=== PATIENT | male | born 1970 | race American Indian/Alaskan Native ===

== ENCOUNTER 2018-10-12 07:36 | Emergency (ER) | payer SELFPAY ==
--- NOTE | 2018-10-12 08:30 | XRay Report ---
ROUTINE CHEST, TWO VIEWS: HISTORY: chest pain. The trachea, heart, mediastinal contour, lung [place] and bony thorax are unremarkable. IMPRESSION: Unremarkable chest x-ray.
--- NOTE | 2018-10-12 08:40 | Emergency Department Report ---
ED Chest Pain HPI - General Chief Complaint: Chest Pain Stated Complaint: CHEST PAIN Time Seen by Provider: 10/12/18 08:23 Source: patient Mode of arrival: Ambulatory Limitations: No Limitations - History of Present Illness Initial Comments: 48-year-old male with history of hypertension presents to the ED with complaint of chest pain x 2 days. Patient reports pain feels like muscle soreness in the middle of his chest. 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 Pain is worse with deep breath, twisting of torso, stretching. Patient denies shortness of breath, leg pain or swelling, nausea or vomiting, diaphoresis. MD Complaint: chest pain -: days(s) (2) Onset: during rest Pain Location: substernal Pain Radiation: none Severity: moderate Quality: other ("soreness") Consistency: constant Improves With: nothing Worsens With: inspiration, movement re: denies: nausea, vomting, diaphoresis, dyspnea Other Symptoms: denies: cough, fever, leg swelling, palpitations - Related Data Previous Rx's Medication Instructions Recorded Last Taken Type HYDROcodone/APAP 5-325 [[place] 1 each PO Q6HR PRN #15 tablet 05/20/13 Unknown Rx 5/325 mg] Indomethacin [Indocin] 25 mg PO Q8H #30 capsule 05/20/13 Unknown Rx Naproxen [Naprosyn] 500 mg PO BID #20 tablet 10/12/18 Unknown Rx Allergies Allergy/AdvReac Type Severity Reaction Status Date / Time No Known Allergies Allergy Verified 10/12/18 07:38 Heart Score - HEART Score History: Slightly suspicious EKG: Normal Age: 45-65 Risk factors: 1-2 risk factors Troponin: < normal limit HEART Score: 2 - Critical Actions Critical Actions: 0-3 pts:0.9-1.7%risk of adverse cardiac event.Candidate for discharge ED Review of Systems ROS: Stated complaint: CHEST PAIN Other details as noted in HPI Comment: All other systems reviewed and negative Constitutional: denies: chills, fever Respiratory: denies: cough, shortness of breath Cardiovascular: chest pain Gastrointestinal: denies: nausea, vomiting Musculoskeletal: other (denies leg pain or swelling) ED Past Medical Hx - Past Medical History Hx Hypertension: Yes - Social History Smoking Status: Current Every Day Smoker Substance Use Type: None - Medications Home Medications: Home Medications Medication Instructions Recorded Confirmed Last Taken Type HYDROcodone/APAP 5-325 [[place] 1 each PO Q6HR PRN #15 tablet 05/20/13 Unknown Rx 5/325 mg] Indomethacin [Indocin] 25 mg PO Q8H #30 capsule 05/20/13 Unknown Rx Naproxen [Naprosyn] 500 mg PO BID #20 tablet 10/12/18 Unknown Rx ED Physical Exam - General Limitations: No Limitations General appearance: alert, in no apparent distress - Head Head exam: Present: atraumatic, normocephalic - Eye Eye exam: Present: normal appearance, PERRL, EOMI - ENT ENT exam: Present: mucous membranes moist - Neck Neck exam: Present: normal inspection - Respiratory Respiratory exam: Present: normal lung sounds bilaterally, chest wall tenderness. Absent: respiratory distress - Cardiovascular Cardiovascular Exam: Present: regular rate, normal rhythm - GI/Abdominal GI/Abdominal exam: Absent: distended - Extremities Exam Extremities exam: Present: normal inspection. Absent: pedal edema, calf tenderness - Neurological Exam Neurological exam: Present: alert, oriented X3 - Psychiatric Psychiatric exam: Present: normal affect, normal mood - Skin Skin exam: Present: warm, dry, intact, normal color. Absent: rash ED Course Vital Signs 10/12/18 07:54 Temperature 98.4 F Pulse Rate 92 H Respiratory 14 Rate Blood Pressure 143/101 [Left] O2 Sat by Pulse 99 Oximetry ED Medical Decision Making - Lab Data Result diagrams: 10/12/18 08:13 10/12/18 09:33 - EKG Data -: EKG Interpreted by Pa EKG shows normal: sinus rhythm, axis, intervals, QRS complexes, ST-T waves Rate: normal - EKG Data Interpretation: LVH - Radiology Data Radiology results: report reviewed, image reviewed - Medical Decision Making - chest wall pain - EKG normal, trop negative - CXR normal - outpt f/u advised - return precautions given - Differential Diagnosis costochondritis, pneumonia, ACS Critical care attestation.: If time is entered above; I have spent that time in minutes in the direct care of this critically ill patient, excluding procedure time. ED Disposition Clinical Impression: Costochondritis, acute Disposition: DC-01 TO HOME OR SELFCARE Is pt being admited?: No Condition: Stable Instructions: Costochondritis (ED) Referrals: SPENCER ARTIS MD [Primary Care Provider] - 3-5 Days Time of Disposition: 10:20
[2018-10-12 08:52] LABS: Alanine Aminotransferase 29 units/L (7-56); Albumin 4.4 g/dL (3.9-5); BUN/Creatinine Ratio 11; Blood Urea Nitrogen 13 mg/dL (9-20); Calcium 9.7 mg/dL (8.4-10.2); Hemolysis Index 24
[2018-10-12 09:25] LABS: Basophils % (Auto) 0.6 % (0.0-1.8); Eosinophils # (Auto) 0.1 K/mm3 (0.0-0.4); Eosinophils % (Auto) 1.4 % (0.0-4.3); Hematocrit 45.4 % (35.5-45.6); Hemoglobin 15.2 gm/dl (11.8-15.2); Lymphocytes # (Auto) 2.9 K/mm3 (1.2-5.4); Lymphocytes % (Auto) 33.2 % (13.4-35.0); Mean Corpuscular HGB Conc 34 % (32-34); Mean Corpuscular Volume 96 fl (84-94); Monocytes # (Auto) 0.5 K/mm3 (0.0-0.8); Monocytes % (Auto) 5.9 % (0.0-7.3); Platelet Count 240 K/mm3 (140-440); Red Blood Count 4.73 M/mm3 (3.65-5.03); Red Cell Distribution Width 13.7 % (13.2-15.2)
[2018-10-12] MEDS ORDERED: TORADOL IM ONE (10:18)
[2018-10-12 11:24] VITALS: BP 189/119
== END 2018-10-12 11:36 | disposition home or self-care (01) ==
LOC: ED 07:36
DX: M94.0 Chondrocostal junction syndrome [Tietze] (principal); I10 Essential (primary) hypertension; F17.200 Nicotine dependence, unspecified, uncomplicated; Z79.899 Other long term (current) drug therapy
CPT/HCPCS: 36415; 71046; 80053; 84132; 84484; 85025; 93005; 93010; 96372; 99283; J1885